=== PATIENT | male | born 1960 | race Caucasian/White ===

== ENCOUNTER 2019-01-19 07:50 | Day surgery (SDC) | payer BC, SELFPAY ==
--- NOTE | 2019-01-19 07:55 | EKG12_ITS ---
Test Reason : PREOP Blood Pressure : / mmHG Vent. Rate : 066 BPM Atrial Rate : 066 BPM P-R Int : 204 ms QRS Dur : 092 ms QT Int : 404 ms P-R-T Axes : 029 016 017 degrees QTc Int : 423 ms Normal sinus rhythm Normal ECG No previous ECGs available Confirmed by FRED POOLE, LAMONT ([id number]), avid editor MANDIE RUST ([id number]) on 01/22/2019 2:17:32 PM Referred By: Won Rodríguez Confirmed By:ASHWIN IBARRA MD
[2019-01-19 08:17] VITALS: BP 144/77; PULSE 74; RESP 18; TEMP 36.6; O2SAT 100; BMI 36.3
[2019-01-19 08:28] LABS: Hematocrit 40.1 % (40-54); Hemoglobin 13.9 g/dL (13.0-16.5); Mean Corp Hgb Conc 34.7 g/dL (32-36); Mean Corpuscular Hgb 32.7 pg (27.0-32.0); Mean Corpuscular Volume 94.4 fL (80-94); Mean Platelet Vol. 10.4 fl (6.2-12.0); Platelet Count 191 K/mm3 (150-450); RBC Distribution Width CV 13.1 % (11.6-14.6); RBC Distribution Width SD 45.1 fl (35.1-43.9); Red Blood Count 4.25 M/mm3 (4.6-6.2); White Blood Count 5.6 K/mm3 (4.4-11.0)
[2019-01-19 08:53] LABS: Anion Gap 5 (5-15); BUN 16 mg/dL (7-18); BUN/Creat Ratio 18.1 RATIO (10-20); Calcium,Total 9.2 mg/dL (8.5-10.1); Chloride 106 mmol/L (98-107); Creatinine, Serum 0.88 mg/dL (0.70-1.30); EST Glomerular Filtration Rate 94 mL/min (>60); Est Glom Filt Rate - Afr Amer 114 mL/min (>60); Estimated Creatinine Clearance 100.43 ml/min; Glucose 103 mg/dL (74-106); Potassium 3.7 mmol/L (3.5-5.1); Sodium Level 139 mmol/L (136-145); Thyroid Stim Hormone (TSH) 2.54 uIU/mL (0.358-3.74)
--- NOTE | 2019-01-19 09:40 | NASAL_PTH ---
PATIENT: BUDDY MARQUEZ [place] [facility] [id number] AGE/SX: 58/M ROOM: RE01/19/[address]: Dr. Won Rodríguez MD : 1960 BED: DIS: 01/19/2019 SPEC #: [id number] RECD: 01/19/19 13:35 STATUS: SAUD PAIGE #: [id number] BETSY: 01/19/19 09:[address]: Won Rodríguez DEPT: SURGICAL PATHOLOGY RECD BY: Hilaria Wright ENTERED: 01/19/19 13:59 SP TYPE: NASAL SPEC OTHR DR: Dr. 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 Right nasal tumor, B. Lesion of right buccal mucosa MICROSCOPIC DIAGNOSIS A. 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 Negative for malignancy. B. Lesion of right buccal mucosa, biopsy: Squamous mucosa with focal acanthosis. See comment. SJ:rg 01/22/19 COMMENT B. Mild hyperplasia of underlying minor salivary gland tissue is noted. MICROSCOPIC DESCRIPTION Slides are reviewed. GROSS DESCRIPTION A - Received in fixative is one container labeled with the patient's name and designated right nasal tumor. The specimen consists of a polypoid piece of carty-white skin measuring 4 x 2.5 x 0.5 cm. Also present in the container is a small piece of carty-pink soft tissue measuring 1 x 0.5 x 0.3 cm. The smaller piece is inked blue and the base of the larger polyp is inked black. The entire specimen is submitted in three cassettes. Cassette 1 also contains the smaller piece of tissue. B - Received in fixative is one container labeled with the patient's name and designated lesion of right buccal mucosa. The specimen consists of a piece of carty mucosal tissue measuring 1 x 0.8 x 0.4 cm. The specimen is bisected and submitted entirely in one cassette. / NATHAN:paul 01/19/19 TC:5 CPT: 97508 x2
--- NOTE | 2019-01-19 11:38 | PCM.OPRPT ---
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 This is a new finding on exam and relatively asymptomatic however given its appearance was suspicious for possible neoplasm and excision was advised. The risks, alternatives, potential complications, and benefits were discussed at length and any questions answered to the patient and/or caregiver's satisfaction. Witnessed informed consent was obtained in the office, and the patient and/or caregiver was agreeable to proceed. Procedure went as follows: The patient was identified in the preoperative holding and brought to the operating room, was placed under general anesthesia and intubated. When appropriate anesthesia was obtained, the navigational head gear was placed and confirmed to be operational in accordance with the impregnator operator's directions. Pledgets soaked in a 50-50 mixture of oxymetazoline and 4% topical lidocaine were placed to decongest the nasal mucosa. These were then removed and beginning on the left side using a 0? endoscope the nasal cavity examined. There is noted to be a large papillomatous lesion lying along the length of the nasal floor and obstructing the inferior aspect of the nasal cavity. This was freely mobile and pedicled along a small stalk arising from the nasal floor. This was then injected with 1% lidocaine with 100,000 epinephrine for a total of 2 mL. Using a Antonio forceps this was then evulsed in its entirety and sent for pathologic specimen. Using monopolar suction cautery the wound base was then probably cauterized. Attention was then turned to excision of the right buccal mucosal lesion. A dental wedge was placed to open the mouth on the left side and the right cheek mucosa evaluated. There is noted to be a 1 cm purple bulging vascular appearing lesion arising along the posterior aspect of the buccal mucosa anterior to the retromolar trigone. This was then injected with 1% lidocaine with 100,000 epinephrine for a total total of 2 mL. This was then sharply incised an ellipse with a 15 blade scalpel and transected at its base with an iris scissor. The lesion was then sent for pathologic evaluation. The wound was then closed with interrupted 3-0 Vicryl suture for hemostasis. The oral cavity was then suctioned clear of any blood and secretions in the dental wedge removed. This completed the procedures and the patient returned to anesthesia, revived and extubated having tolerated the procedure well. Type of Anesthesia:: General Anesthesiologist: Elver Smalls Special Medications: none Specimen's removed: right nasal mass, right cheek mucosa lesion Drains: none Estimated Blood Loss (mL): 10 mL Fluids Replaced: 600 mL Grafts/Implants Used: none - Complications none - Admit VTE Documentation VTE Present on Admission: No VTE Mechan Device Prophylaxis: SCD's VTE Pharm Prophylaxis ordered?: No
--- NOTE | 2019-01-19 11:47 | DCINST_ITS ---
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 (Acute) You will use the following diet at home:: Regular Discharge Activity: Return to Normal Activity Call your doctor if your incision/area has: Sudden Increased Bleeding Call your doctor if you observe: Fever of 101 or Higher, Uncontrolled pain Allergies/Adverse Reactions: Allergies codeine Adverse Reaction (Verified 01/19/19 08:15) Other HEADACHE Medications to take at Discharge Losartan/Hydrochlorothiazide [Losartan-Hctz 50-12.5 mg Tab] 1 ea PO DAILY 01/12/19 Meclizine HCl [Antivert] 25 mg PO TID PRN PRN 01/12/19 Omeprazole 20 mg PO DAILY 01/12/19 Pravastatin Sodium 40 mg PO DAILY 01/12/19 Rizatriptan Benzoate [Maxalt] 5 mg PO .X1 PRN 01/12/19 Serc 12 mg PO DAILY 01/12/19 Sertraline HCl [Zoloft] 50 mg PO DAILY 01/12/19 Primary Care Physician: Los Villaloobs MD [Primary Care Provider] - Test Results: Test results from this visit will be discussed in further detail at your follow- up appointment, if applicable. Please Follow Up With: Won Rodríguez MD When: 2 weeks
[2019-01-19 11:48] VITALS: BP 110/59; BP 144/77; PULSE 72; RESP 16; TEMP 36.1; O2SAT 94
[2019-01-19 12:03] VITALS: BP 124/66; BP 144/77; PULSE 64; RESP 16; O2SAT 97
[2019-01-19 12:16] VITALS: BP 123/69; BP 144/77; PULSE 60; RESP 16; TEMP 36.2; O2SAT 95
[2019-01-19] MEDS: Acetaminophen 325 MG Tablet 650 MG PO (12:35)
[2019-01-19 12:37] VITALS: BP 117/75; BP 144/77; PULSE 70; RESP 18; TEMP 36.5; O2SAT 94
== END 2019-01-19 13:10 | disposition home or self-care (01) ==
LOC: SDC 07:50 → AC 07:55
PROVIDERS: Anesthesiology; Family Provider Internal Medicine; PCP Internal Medicine; Referring Provider Otolaryngology; Visit Provider Otolaryngology
PROC: (CPT 31237; principal; 2019-01-19 09:20)
DX: J33.0 Polyp of nasal cavity (principal); D10.30 Benign neoplasm of unspecified part of mouth; H81.01 Meniere's disease, right ear; H93.11 Tinnitus, right ear; Z87.891 Personal history of nicotine dependence; K21.9 Gastro-esophageal reflux disease without esophagitis; I10 Essential (primary) hypertension; E78.5 Hyperlipidemia, unspecified; E83.119 Hemochromatosis, unspecified; Z85.038 Personal history of other malignant neoplasm of large intestine; Z86.711 Personal history of pulmonary embolism; F41.9 Anxiety disorder, unspecified; E04.1 Nontoxic single thyroid nodule; Z79.899 Other long term (current) drug therapy
CPT/HCPCS: 00170; 31237; 40812; 36415; 80048; 84443; 85027; 88305; 93005; J7120; J2405